=== PATIENT | female | born 1995 | race American Indian/Alaskan Native ===

== ENCOUNTER 2020-01-12 20:54 | Emergency (ER) | payer SELFPAY ==
[2020-01-12 21:19] VITALS: BP 125/82
--- NOTE | 2020-01-12 22:50 | Emergency Department Report ---
ED General Adult HPI - General Chief complaint: Wound/Laceration Stated complaint: WOUND CHECK Source: patient Mode of arrival: Ambulatory Limitations: No Limitations - History of Present Illness Initial comments: Patient is a 24-year-old -Citizen Of [place] female with a history of obesity who presents to the ED with complaint of open chest wall and abdominal wall surgical wounds for the last 2 days. Patient states that she had a double mastectomy and abdominal lap band surgery about 2 weeks ago and that she has been taking gabapentin for pain as needed. Patient also states that about 2 days ago she noticed that some of the sutures had come loose and that the surgical wound had opened up on the anterior chest wall as well as on the right lateral abdominal wall. Patient denies fever, chills, nausea, vomiting, dizziness, syncope, chest pain, shortness of breath, cough, traumatic injury, heavy lifting or headache headache MD Complaint: Chest wall and abdominal surgical wound dehiscence -: Sudden, days(s) (2) Location: chest, abdomen Radiation: non-radiation Severity scale (0 -10): 6 Quality: aching, dull Consistency: constant Improves with: none Worsens with: none Associated Symptoms: denies other symptoms. denies: confusion, chest pain, cough, diaphoresis, fever/chills, loss of appetite, malaise, nausea/vomiting, rash, shortness of breath, syncope, weakness, other Treatments Prior to Arrival: none - Related Data Previous Rx's Medication Instructions Recorded Last Taken Type Gabapentin 300 mg PO Q8HR PRN #30 capsule 01/12/20 Unknown Rx Mupirocin [Bactroban 2% OINT] 1 applic TP TID #1 tube 01/12/20 Unknown Rx Allergies Allergy/AdvReac Type Severity Reaction Status Date / Time No Known Allergies Allergy Unverified 01/12/20 21:11 ED Review of Systems ROS: Stated complaint: WOUND CHECK Other details as noted in HPI Constitutional: denies: chills, fever Eyes: denies: eye pain, eye discharge, vision change ENT: denies: ear pain, throat pain Respiratory: denies: cough, shortness of breath, wheezing Cardiovascular: chest pain (Mild chest wall pain due to chest wall surgical site dehiscence). denies: palpitations Endocrine: no symptoms reported Gastrointestinal: abdominal pain (Abdominal surgical site dehiscence with pain). denies: nausea, vomiting, diarrhea Genitourinary: denies: urgency, dysuria, discharge Musculoskeletal: denies: back pain, joint swelling, arthralgia Skin: other (Anterior chest wall and right lateral abdominal wall surgical site dehiscence). denies: rash, lesions Neurological: denies: headache, weakness, paresthesias Psychiatric: denies: anxiety, depression Hematological/Lymphatic: denies: easy bleeding, easy bruising ED Past Medical Hx - Past Medical History Previous Medical History?: Yes - Surgical History Past Surgical History?: Yes Additional Surgical History: Double Mastectomy states not because of cancer and abdominal surgery for fat removal - Medications Home Medications: Home Medications Medication Instructions Recorded Confirmed Last Taken Type Gabapentin 300 mg PO Q8HR PRN #30 capsule 01/12/20 Unknown Rx Mupirocin [Bactroban 2% OINT] 1 applic TP TID #1 tube 01/12/20 Unknown Rx ED Physical Exam - General Limitations: No Limitations General appearance: alert, in no apparent distress - Head Head exam: Present: atraumatic, normocephalic, normal inspection - Eye Eye exam: Present: normal appearance, PERRL, EOMI Pupils: Present: normal accommodation - ENT ENT exam: Present: normal exam, normal orophraynx, mucous membranes moist, TM's normal bilaterally, normal external ear exam - Neck Neck exam: Present: normal inspection, full ROM. Absent: tenderness - Respiratory Respiratory exam: Present: normal lung sounds bilaterally, chest wall tenderness (Mildly tender anterior chest wall surgical wound with dehiscence). Absent: respiratory distress, wheezes, accessory muscle use - Cardiovascular Cardiovascular Exam: Present: regular rate, normal rhythm, normal heart sounds. Absent: systolic murmur, diastolic murmur, rubs, gallop - GI/Abdominal GI/Abdominal exam: Present: soft, tenderness (Mildly tender right lateral abdominal surgical wound dehiscence), normal bowel sounds. Absent: guarding, rebound, hyperactive bowel sounds, hypoactive bowel sounds, organomegaly - Extremities Exam Extremities exam: Present: normal inspection, full ROM, normal capillary refill - Back Exam Back exam: Present: normal inspection, full ROM. Absent: tenderness, muscle spasm, paraspinal tenderness - Neurological Exam Neurological exam: Present: alert, oriented X3, CN II-XII intact, normal gait, reflexes normal - Psychiatric Psychiatric exam: Present: normal affect, normal mood - Skin Skin exam: Present: warm, dry, intact, normal color, other (Mildly tender, open surgical wound dehiscence in the anterior chest wall and right lateral abdominal wall). Absent: rash ED Course Vital Signs 01/12/20 01/13/20 21:13 00:00 Temperature 98.2 F Pulse Rate 90 83 Respiratory 17 17 Rate Blood Pressure 125/82 O2 Sat by Pulse 96 97 Oximetry ED Medical Decision Making - Medical Decision Making This is a 24-year-old -Citizen Of [place] female with a history of obesity who presents to the ED with complaint of open chest wall and abdominal wall surgical wounds for the last 2 days. Patient states that she had a double mastectomy and abdominal lap band surgery about 2 weeks ago and that she has been taking gabapentin for pain as needed. Patient also states that about 2 days ago she noticed that some of the sutures had come loose and that the surgical wound had opened up on the anterior chest wall as well as on the right lateral abdominal wall. In the ED, patient is alert and oriented x3 and is not in distress. Patient was discharged home on medications for pain and antibiotic ointment, and was advised to follow up with her Plastic surgeon in 3-5 day for reevaluation. Patient was advised return to the ED immediately if symptoms get worse. - Differential Diagnosis Wound dehiscence; Cellulitis; Surgical wound infection Critical care attestation.: If time is entered above; I have spent that time in minutes in the direct care of this critically ill patient, excluding procedure time. ED Disposition Clinical Impression: Cellulitis of right abdominal wall Surgical wound dehiscence Qualifiers: Encounter type: initial encounter Qualified Code(s): T81.31XA - Disruption of external operation (surgical) wound, not elsewhere classified, initial encounter Disposition: DC-01 TO HOME OR SELFCARE Is pt being admited?: No Does the pt Need Aspirin: No Condition: Stable Instructions: Wound Infection (ED), Acute Wound Care (ED), Wound Dehiscence (ED) Additional Instructions: Take medication as advised, drink plenty of fluids and follow-up with your primary care physician in 7 to 10 days. Consider following up with the plastic surgeon who performed the surgery in the next 3 to 5 days for reevaluation. Return to the ED immediately if symptoms get worse. Prescriptions: Mupirocin [Bactroban 2% OINT] 1 applic TP TID #1 tube Gabapentin 300 mg PO Q8HR PRN #30 capsule PRN Reason: Pain , Severe (7-10) Referrals: [facility] [Provider Group] - 3-5 Days Time of Disposition: 22:59 Print Language: PUERT[place] RICAN
== END 2020-01-13 | disposition home or self-care (01) ==
LOC: ED 20:54
DX: T81.31XA Disruption of external operation (surgical) wound, not elsewhere classified, initial encounter (principal); L03.311 Cellulitis of abdominal wall; X58.XXXA Exposure to other specified factors, initial encounter
CPT/HCPCS: 99282